=== PATIENT | female | born 2000 | race Caucasian/White ===

== ENCOUNTER 2024-07-08 15:17 | Inpatient (IN) | payer OTHER ==
[2024-07-08] MEDS ORDERED: Ketorolac Tromethamine 30 MG (1 mL) VIAL IVP PRN (18:14)
[2024-07-08] MEDS: Sodium Chloride 0.9% 1,000 ML IV SCH (18:41)
[2024-07-08] MEDS: Cefepime 2 GM in Sodium Chloride 0.9% 100 ML IVPB SCH (19:30)
[2024-07-08] MEDS: methylPREDNISolone Sod Succ 40 MG VIAL IVP SCH (20:08)
[2024-07-08] MEDS: Famotidine/PF 20 mg/2ml Vial SLOW IVP SCH (20:08)
[2024-07-08 20:11] LABS: Influenza A by NAA Not Detected (NotDetected); Influenza B by NAA Not Detected (NotDetected); RSV by NAA Not Detected (NotDetected); SARS-CoV-2 NAA Rapid Test Not Detected (NotDetected)
[2024-07-08] MEDS: Acetaminophen 500 MG TAB PO PRN (20:19)
[2024-07-08] MEDS ORDERED: Vancomycin 1 GM in Sodium Chloride 0.9% 250 ML 300 ML IVPB SCH (21:00)
[2024-07-08 21:04] LABS: ALT (SGPT) 51 U/L (8-55); AST (SGOT) 53 U/L (5-34); Alkaline Phosphatase 194 U/L (40-110); Anion Gap 13 mmol/L (10-20); BUN (Urea Nitrogen) 7 mg/dL (7.0-18.7); Bilirubin, Total 0.6 mg/dL (0.2-1.2); Calc. Creatinine Clearance 122 mL/min (70-130); Carbon Dioxide 16 mmol/L (22-29); Chloride 109 mmol/L (98-107); Estimated GFR 124; Globulin 3.3 g/dL (2.4-3.5); Glucose 95 mg/dL (70-105); Potassium 3.7 mmol/L (3.5-5.1); Protein, Total 5.3 g/dL (6.0-8.3); Sodium 134 mmol/L (136-145)
[2024-07-08 21:10] LABS: Strep pneumo Urine Ag NEGATIVE (NEGATIVE)
[2024-07-08] MEDS: Vancomycin (BATCH) 1.25 GM in Premix 1 BAG IVPB SCH (21:11)
[2024-07-08 21:54] LABS: Legionella Urinary Ag Negative (Negative)
[2024-07-08] MEDS ORDERED: Cefepime 2 GM in Sodium Chloride 0.9% 100 ML IVPB SCH (22:00)
[2024-07-08] MEDS: Azithromycin 500 MG in Sodium Chloride 0.9% 250 ML 250 ML IVPB SCH (22:10)
[2024-07-08] MEDS: Albumin 25% 25 GM (100 mL) BOT IVPB SCH (23:35)
[2024-07-09] MEDS: Albumin 25% 25 GM (100 mL) BOT IVPB SCH (06:10)
[2024-07-09 06:29] LABS: Hematocrit 28.4 % (36.0-47.0); Hemoglobin 9.7 g/dL (12.0-16.0); Mean Corpuscular HGB CONC 34.2 g/dL (32.0-36.0); Mean Corpuscular Hemoglobin 29.4 pg (27.0-31.0); Mean Corpuscular Volume 86.1 fL (78.0-98.0); Mean Platelet Volume 9.5 fL (7.4-10.4); Platelet Count 289 10x3/uL (130-400); RBC Distribution Width 12.3 % (11.5-14.5)
[2024-07-09 06:36] VITALS: BMI 26.2
[2024-07-09 06:36] LABS: ALT (SGPT) 42 U/L (8-55); AST (SGOT) 30 U/L (5-34); Albumin 2.5 g/dL (3.5-5.0); Alkaline Phosphatase 178 U/L (40-110); Anion Gap 11 mmol/L (10-20); BUN (Urea Nitrogen) 7 mg/dL (7.0-18.7); Calc. Creatinine Clearance 136 mL/min (70-130); Carbon Dioxide 19 mmol/L (22-29); Chloride 111 mmol/L (98-107); Estimated GFR 129; Globulin 3.1 g/dL (2.4-3.5); Glucose 142 mg/dL (70-105); Potassium 4.2 mmol/L (3.5-5.1); Protein, Total 5.6 g/dL (6.0-8.3); Sodium 137 mmol/L (136-145)
[2024-07-09 06:58] LABS: Bilirubin, Total 0.5 mg/dL (0.2-1.2); Calcium 8.4 mg/dL (7.8-10.44)
[2024-07-09 07:01] LABS: Band 39 % (5-11); Lymphocytes 1 % (21-51); Monocytes 4 % (0-10); Neutrophil 56 % (42-75); Platelet Adequacy Comment Platelets Normal; RBC Morphology Within Normal Limits
[2024-07-09] MEDS: Enoxaparin 40 MG (0.4 mL) SYRINGE SC SCH (08:58)
[2024-07-09] MEDS: BuPROPion 100 MG SR.TAB PO SCH (08:58)
[2024-07-09 12:26] LABS: Actual Bicarbonate (HCO3a) 18.9 mEq/L (22-28); Base Excess (BEa) -4.2 mEq/L (-2.0 to +3.0); CO2 Tension 29.1 mmHg (35.0-45.0); Calcium, Ionized (arterial) 1.19 mmol/L (1.12-1.30); Carboxyhemoglobin (COHb) 0.1 gm% (0.0-3.0); Hematocrit-ABG 37 % (36.0-47.0); Hemoglobin (Hb) 12.7 g/dL (12.0-16.0); Potassium - ABG Lab 3.85 mmol/L (3.70-5.30); pH, Arterial 7.431 (7.35-7.45)
[2024-07-09 14:33] LABS: O2 Tension (PaO2), arterial 58.6 mmHg (80.0-100.0); Puncture Site Right Radial artery
[2024-07-09] MEDS: Lorazepam 2 MG/ML VIAL ONE (16:57)
[2024-07-09] MEDS: methylPREDNISolone Sod Succ 40 MG VIAL IVP SCH (17:15)
[2024-07-09] MEDS: Vancomycin 1 GM in Premix 1 BAG IVPB SCH (17:15)
[2024-07-09] MEDS: Morphine 4 MG/ML VIAL ONE (18:52)
[2024-07-09] MEDS ORDERED: Morphine 2 MG/ML VIAL SLOW IVP PRN (19:04)
[2024-07-09] MEDS: Morphine 2 MG/ML VIAL SLOW IVP SCH ×2 (19:43→21:01)
[2024-07-09] MEDS: guaiFENesin 200 MG TAB PO PRN (21:59)
[2024-07-09] MEDS: Lorazepam 2 MG/ML VIAL SLOW IVP PRN (23:23)
[2024-07-10 01:00] LABS: Actual Bicarbonate (HCO3a) 19.6 mEq/L (22-28); Base Excess (BEa) -4.9 mEq/L (-2.0 to +3.0); CO2 Tension 33.9 mmHg (35.0-45.0); Calcium, Ionized (arterial) 1.18 mmol/L (1.12-1.30); Carboxyhemoglobin (COHb) 0.3 gm% (0.0-3.0); Hematocrit-ABG 30 % (36.0-47.0); Hemoglobin (Hb) 10.2 g/dL (12.0-16.0); Potassium - ABG Lab 3.63 mmol/L (3.70-5.30); pH, Arterial 7.379 (7.35-7.45)
[2024-07-10 01:07] LABS: O2 Tension (PaO2), arterial 43.5 mmHg (80.0-100.0)
[2024-07-10 01:08] LABS: Puncture Site LR
[2024-07-10 01:09] LABS: ALV-art Gradient 627.125 mmHg (0-20)
[2024-07-10] MEDS: Propofol 1,000 MG/100 ML VIAL IV ONE (01:24)
[2024-07-10] MEDS: Fentanyl CADD 100 ML IV SCH (01:41)
[2024-07-10] MEDS ORDERED: DISCONTINUE PREVIOUS NARCOTIC PAIN MEDICATIONS AND BENZODIAZEPINES FS SCH (01:45)
[2024-07-10] MEDS ORDERED: Morphine 2 MG/ML VIAL SLOW IVP PRN (01:45)
[2024-07-10] MEDS ORDERED: Propofol BOLUS 1,000 MG/100 ML VIAL IV PRN (01:45)
[2024-07-10] MEDS ORDERED: Ventilator Sedation Protocol 1 EACH FS SCH (01:45)
[2024-07-10] MEDS ORDERED: Lorazepam 2 MG/ML VIAL SLOW IVP PRN (01:45)
[2024-07-10] MEDS ORDERED: Fentanyl BOLUS 250 ML IVPB PRN (01:45)
[2024-07-10 02:56] LABS: Actual Bicarbonate (HCO3a) 17.9 mEq/L (22-28); Base Excess (BEa) -3.5 mEq/L (-2.0 to +3.0); Calcium, Ionized (arterial) 1.16 mmol/L (1.12-1.30); Carboxyhemoglobin (COHb) 0.3 gm% (0.0-3.0); Hematocrit-ABG 28 % (36.0-47.0); Hemoglobin (Hb) 9.5 g/dL (12.0-16.0); Potassium - ABG Lab 3.71 mmol/L (3.70-5.30); pH, Arterial 7.535 (7.35-7.45)
[2024-07-10 02:58] LABS: Puncture Site RR
[2024-07-10 02:59] LABS: ALV-art Gradient 577.875 mmHg (0-20)
[2024-07-10 05:34] LABS: #Basophils 0.06 10x3/uL (0.0-0.2); #Eosinophils Less than 0.03 10x3/uL (0.0-0.7); %Basophils 0.3 % (0.0-1.0); %Lymphocytes 5.4 % (21.0-51.0); %Monocytes 5.2 % (0.0-10.0); %Neutrophils 85.4 % (42.0-75.0); Hematocrit 26.3 % (36.0-47.0); Mean Corpuscular HGB CONC 34.2 g/dL (32.0-36.0); Mean Corpuscular Hemoglobin 29.7 pg (27.0-31.0); Mean Corpuscular Volume 86.8 fL (78.0-98.0); Platelet Count 252 10x3/uL (130-400); RBC Distribution Width 12.5 % (11.5-14.5); Red Blood Cell (RBC) Count 3.03 mill/uL (4.20-5.40)
[2024-07-10] MEDS: Propofol 1,000 MG/100 ML VIAL IV PRN (05:45)
[2024-07-10 05:55] LABS: ALT (SGPT) 30 U/L (8-55); AST (SGOT) 23 U/L (5-34); Albumin 3.4 g/dL (3.5-5.0); Alkaline Phosphatase 136 U/L (40-110); Anion Gap 12 mmol/L (10-20); BUN (Urea Nitrogen) 10 mg/dL (7.0-18.7); Bilirubin, Total 0.7 mg/dL (0.2-1.2); Calc. Creatinine Clearance 132 mL/min (70-130); Calcium 8.8 mg/dL (7.8-10.44); Carbon Dioxide 20 mmol/L (22-29); Chloride 109 mmol/L (98-107); Estimated GFR 128; Globulin 2.5 g/dL (2.4-3.5); Glucose 196 mg/dL (70-105); Potassium 3.5 mmol/L (3.5-5.1); Protein, Total 5.9 g/dL (6.0-8.3); Sodium 137 mmol/L (136-145)
[2024-07-10] MEDS: FLU (Fluarix Triv) TS24-25(6MOS UP)/PF 45 MCG/0.5 ML Syringe IM ONE (09:43)
[2024-07-11 04:38] LABS: Vancomycin, Random 34.2 ug/mL (See Comment)
[2024-07-11 04:46] LABS: ALT (SGPT) 43 U/L (8-55); AST (SGOT) 52 U/L (5-34); Albumin 3.2 g/dL (3.5-5.0); Alkaline Phosphatase 130 U/L (40-110); Anion Gap 11 mmol/L (10-20); BUN (Urea Nitrogen) 14 mg/dL (7.0-18.7); Bilirubin, Total 0.4 mg/dL (0.2-1.2); Calc. Creatinine Clearance 134 mL/min (70-130); Calcium 8.4 mg/dL (7.8-10.44); Carbon Dioxide 20 mmol/L (22-29); Chloride 108 mmol/L (98-107); Estimated GFR 128; Globulin 2.4 g/dL (2.4-3.5); Glucose 218 mg/dL (70-105); Magnesium 2.3 mg/dL (1.6-2.6); Phosphorus 2.7 mg/dL (2.3-4.7); Potassium 4.1 mmol/L (3.5-5.1); Protein, Total 5.6 g/dL (6.0-8.3); Sodium 135 mmol/L (136-145)
[2024-07-11 04:48] LABS: Hematocrit 27.7 % (36.0-47.0); Mean Corpuscular HGB CONC 32.5 g/dL (32.0-36.0); Mean Corpuscular Hemoglobin 29.8 pg (27.0-31.0); Mean Corpuscular Volume 91.7 fL (78.0-98.0); Mean Platelet Volume 9.9 fL (7.4-10.4); Platelet Count 390 10x3/uL (130-400); RBC Distribution Width 13.1 % (11.5-14.5); Red Blood Cell (RBC) Count 3.02 mill/uL (4.20-5.40)
[2024-07-11 05:58] LABS: Anisocytosis SLIGHT = 6-15 cells HPF (0-5); Band 12 % (5-11); Hypochromia SLIGHT = 6-15 cells HPF (0-5); Lymphocytes 8 % (21-51); Monocytes 8 % (0-10); Neutrophil 73 % (42-75); Nucleated RBC (Manual Ct) 1 % (0); Platelet Adequacy Comment Platelets Normal; Polychromasia SLIGHT = 2-3 cells HPF (0-2); Smudge Cells 2.9 %
[2024-07-11 07:43] LABS: Actual Bicarbonate (HCO3a) 18.2 mEq/L (22-28); Base Excess (BEa) -5.4 mEq/L (-2.0 to +3.0); CO2 Tension 29.5 mmHg (35.0-45.0); Calcium, Ionized (arterial) 1.16 mmol/L (1.12-1.30); Carboxyhemoglobin (COHb) 0.3 gm% (0.0-3.0); Hematocrit-ABG 30 % (36.0-47.0); Hemoglobin (Hb) 10.3 g/dL (12.0-16.0); Potassium - ABG Lab 4.17 mmol/L (3.70-5.30); pH, Arterial 7.409 (7.35-7.45)
[2024-07-11 07:48] LABS: Puncture Site Right Radial artery
[2024-07-11 07:49] LABS: ALV-art Gradient 200.625 mmHg (0-20)
[2024-07-11] MEDS ORDERED: Vancomycin (BATCH) 1.25 GM in Premix 1 BAG IVPB SCH (09:00)
[2024-07-11 10:42] LABS: CO2 Tension 21.7 mmHg (35.0-45.0)
[2024-07-12 05:20] LABS: Hematocrit 27.9 % (36.0-47.0); Hemoglobin 9.1 g/dL (12.0-16.0); Mean Corpuscular HGB CONC 32.6 g/dL (32.0-36.0); Mean Corpuscular Hemoglobin 29.4 pg (27.0-31.0); Mean Corpuscular Volume 90.3 fL (78.0-98.0); Platelet Count 410 10x3/uL (130-400); RBC Distribution Width 12.9 % (11.5-14.5); Red Blood Cell (RBC) Count 3.09 mill/uL (4.20-5.40)
[2024-07-12 05:52] LABS: Band 1 % (5-11); Lymphocytes 5 % (21-51); Metamyelocyte 2 % (0-0); Monocytes 4 % (0-10); Myelocyte 1 % (0-0); Neutrophil 87 % (42-75); Nucleated RBC (Manual Ct) 1 % (0); Platelet Adequacy Comment Platelets Normal; RBC Morphology Within Normal Limits
[2024-07-12 05:54] LABS: Anion Gap 15 mmol/L (10-20); BUN (Urea Nitrogen) 15 mg/dL (7.0-18.7); Calc. Creatinine Clearance 121 mL/min (70-130); Calcium 8.7 mg/dL (7.8-10.44); Carbon Dioxide 21 mmol/L (22-29); Chloride 111 mmol/L (98-107); Estimated GFR 122; Glucose 180 mg/dL (70-105); Potassium 3.7 mmol/L (3.5-5.1); Sodium 143 mmol/L (136-145)
[2024-07-12] MEDS: Polyethylene Glycol 3350 17 GM Packet PO SCH (08:37)
[2024-07-12] MEDS ORDERED: Insulin Lispro 100 UNIT/ML 10 ML VIAL SC PRN (09:15)
[2024-07-12] MEDS: Phenol 177 ML BOT PO PRN (12:53)
[2024-07-12] MEDS: Ipratropium/Albuterol 3 ML NEB NEB SCH (14:27)
[2024-07-12] MEDS: Budesonide 0.5 MG/2 ML NEB INH SCH (18:21)
[2024-07-12] MEDS: Famotidine 20 MG TAB PO SCH (20:25)
[2024-07-13 05:19] LABS: Anion Gap 12 mmol/L (10-20); BUN (Urea Nitrogen) 13 mg/dL (7.0-18.7); Calc. Creatinine Clearance 132 mL/min (70-130); Carbon Dioxide 25 mmol/L (22-29); Chloride 109 mmol/L (98-107); Estimated GFR 128; Glucose 84 mg/dL (70-105); Sodium 143 mmol/L (136-145)
[2024-07-13 05:53] LABS: Hematocrit 30.5 % (36.0-47.0); Hemoglobin 10.1 g/dL (12.0-16.0); Mean Corpuscular HGB CONC 33.1 g/dL (32.0-36.0); Mean Corpuscular Hemoglobin 29.8 pg (27.0-31.0); Mean Platelet Volume 9.5 fL (7.4-10.4); Platelet Count 482 10x3/uL (130-400); RBC Distribution Width 12.5 % (11.5-14.5); Red Blood Cell (RBC) Count 3.39 mill/uL (4.20-5.40)
[2024-07-13] MEDS ORDERED: Iopamidol-370 76% 500 ML MDV (1 ML CHARGE) ONE (07:06)
[2024-07-13 07:30] LABS: Anisocytosis SLIGHT = 6-15 cells HPF (0-5); Band 2 % (5-11); Lymphocytes 11 % (21-51); Macrocytosis SLIGHT = 6-15 cells HPF (0-5); Metamyelocyte 1 % (0-0); Monocytes 4 % (0-10); Myelocyte 5 % (0-0); Neutrophil 77 % (42-75); Platelet Adequacy Comment Platelets Normal; Polychromasia SLIGHT = 2-3 cells HPF (0-2)
[2024-07-13] MEDS: Potassium Chloride 20 MEQ TAB PO SCH (08:40)
[2024-07-13] MEDS: methylPREDNISolone Sod Succ 40 MG VIAL IVP SCH (08:40)
[2024-07-13] MEDS: BuPROPion 100 MG SR.TAB PO SCH (08:40)
[2024-07-13] MEDS: Ondansetron PF 4 MG/2 ML Vial IVP PRN (08:40)
[2024-07-13] MEDS ORDERED: Dextrose 50% Abboject 50 ML SYRINGE SLOW IVP PRN (09:00)
[2024-07-13] MEDS ORDERED: Glucagon 1 MG/ML KIT IM PRN (09:00)
[2024-07-13] MEDS ORDERED: Dextrose 5% in Water 1,000 ML IV PRN (09:00)
[2024-07-13 13:04] LABS: INR-International Normal Ratio 1.1
[2024-07-13] MEDS ORDERED: Sodium Bicarbonate 2.5 MEQ/5 ML SDV ONE (15:00)
[2024-07-13] MEDS ORDERED: Lidocaine 1% w/Epinephrine 1:100K 20 ML VIAL ONE (15:00)
[2024-07-13 17:45] LABS: Fluid, Glucose 96 mg/dL (Not Available); Fluid, LDH 537 U/L (Not Available)
[2024-07-13 18:06] LABS: Body Fluid Source Ascites Body Fluid; Clarity Hazy (Clear); RBC Count-Automated (BF) 3170 /cu.mm; Tube # EDTA; WBC/Nucleated-Auto (BF) 7045 /cu.mm
[2024-07-13 18:07] LABS: BF Color Yellow
[2024-07-13 18:10] LABS: BF Segmented Neutrophils 52 %; Cell Count Non Hematic 14 %; Lymphocytes 34 %
[2024-07-13] MEDS: Cefepime 2 GM in Sodium Chloride 0.9% 100 ML IVPB SCH (21:58)
[2024-07-14 05:03] LABS: Hematocrit 31.1 % (36.0-47.0); Hemoglobin 10.2 g/dL (12.0-16.0); Mean Corpuscular HGB CONC 32.8 g/dL (32.0-36.0); Mean Corpuscular Hemoglobin 29.3 pg (27.0-31.0); Mean Corpuscular Volume 89.4 fL (78.0-98.0); Mean Platelet Volume 9.4 fL (7.4-10.4); Platelet Count 423 10x3/uL (130-400); RBC Distribution Width 12.2 % (11.5-14.5); Red Blood Cell (RBC) Count 3.48 mill/uL (4.20-5.40)
[2024-07-14 05:07] LABS: Anion Gap 13 mmol/L (10-20); BUN (Urea Nitrogen) 15 mg/dL (7.0-18.7); Calc. Creatinine Clearance 136 mL/min (70-130); Calcium 8.8 mg/dL (7.8-10.44); Carbon Dioxide 26 mmol/L (22-29); Chloride 106 mmol/L (98-107); Estimated GFR 129; Glucose 93 mg/dL (70-105); Potassium 3.4 mmol/L (3.5-5.1); Sodium 142 mmol/L (136-145)
[2024-07-14 05:39] LABS: Band 3 % (5-11); Lymphocytes 10 % (21-51); Metamyelocyte 4 % (0-0); Monocytes 3 % (0-10); Myelocyte 1 % (0-0); Neutrophil 80 % (42-75); Platelet Adequacy Comment Platelets Normal; Polychromasia SLIGHT = 2-3 cells HPF (0-2); RBC Morphology Within Normal Limits; Smudge Cells 2.6 %
[2024-07-14] MEDS ORDERED: Electrolyte Replacement Protocol FS PRN (07:15)
[2024-07-14] MEDS: Potassium Chloride 20 MEQ TAB PO SCH ×2 (08:12→08:52)
[2024-07-14] MEDS ORDERED: Potassium Chloride 20 MEQ TAB PO SCH (08:15)
[2024-07-14] MEDS: Potassium Chloride 20 MEQ in Premix 1 BAG IVPB SCH (10:01)
[2024-07-14] MEDS: Albumin 25% 25 GM (100 mL) BOT IVPB SCH (11:10)
[2024-07-14] MEDS: cefTRIAXone\\ROCEPHIN 2 GM in Sodium Chloride 0.9% 100 ML IVPB SCH (11:57)
[2024-07-14 14:04] VITALS: BMI 23.6
[2024-07-14] MEDS: metroNIDAZOLE 500 MG in Premix 1 BAG IVPB SCH ×2 (16:31→20:55)
[2024-07-14] MEDS: Ondansetron ODT 4 MG TAB PO PRN (20:55)
[2024-07-14] MEDS: Ketorolac Tromethamine 30 MG (1 mL) VIAL IVP SCH (22:39)
[2024-07-15] MEDS: HYDROcodone/Acetaminophen 5/325 mg Tablet PO SCH
[2024-07-15 03:51] LABS: #Basophils 0.03 10x3/uL (0.0-0.2); %Basophils 0.1 % (0.0-1.0); %Eosinophils 0.9 % (0.0-10.0); %Lymphocytes 7.8 % (21.0-51.0); %Neutrophils 80.2 % (42.0-75.0); Hematocrit 28.8 % (36.0-47.0); Hemoglobin 9.5 g/dL (12.0-16.0); Mean Corpuscular Hemoglobin 29.5 pg (27.0-31.0); Mean Corpuscular Volume 89.4 fL (78.0-98.0); Mean Platelet Volume 9.3 fL (7.4-10.4); Platelet Count 425 10x3/uL (130-400); RBC Distribution Width 12.3 % (11.5-14.5); Red Blood Cell (RBC) Count 3.22 mill/uL (4.20-5.40)
[2024-07-15 04:11] LABS: Anion Gap 12 mmol/L (10-20); BUN (Urea Nitrogen) 10 mg/dL (7.0-18.7); Calc. Creatinine Clearance 117 mL/min (70-130); Calcium 9.1 mg/dL (7.8-10.44); Carbon Dioxide 23 mmol/L (22-29); Chloride 107 mmol/L (98-107); Estimated GFR 128; Glucose 97 mg/dL (70-105); Potassium 3.8 mmol/L (3.5-5.1); Sodium 138 mmol/L (136-145)
[2024-07-15] MEDS: oxyCODONE 5 MG TAB PO PRN (14:54)
[2024-07-16 04:51] LABS: #Basophils 0.06 10x3/uL (0.0-0.2); %Basophils 0.3 % (0.0-1.0); %Eosinophils 1.3 % (0.0-10.0); %Lymphocytes 8.8 % (21.0-51.0); %Monocytes 8.9 % (0.0-10.0); %Neutrophils 79.2 % (42.0-75.0); Hematocrit 32.6 % (36.0-47.0); Hemoglobin 10.8 g/dL (12.0-16.0); Mean Corpuscular HGB CONC 33.1 g/dL (32.0-36.0); Mean Corpuscular Hemoglobin 29.4 pg (27.0-31.0); Mean Corpuscular Volume 88.8 fL (78.0-98.0); Platelet Count 394 10x3/uL (130-400); RBC Distribution Width 12.6 % (11.5-14.5); Red Blood Cell (RBC) Count 3.67 mill/uL (4.20-5.40)
[2024-07-16 04:56] LABS: Anion Gap 14 mmol/L (10-20); BUN (Urea Nitrogen) 10 mg/dL (7.0-18.7); Calc. Creatinine Clearance 119 mL/min (70-130); Calcium 9.4 mg/dL (7.8-10.44); Carbon Dioxide 21 mmol/L (22-29); Chloride 107 mmol/L (98-107); Estimated GFR 128; Glucose 97 mg/dL (70-105); Lipase 56 U/L (8-78); Potassium 3.9 mmol/L (3.5-5.1); Sodium 138 mmol/L (136-145)
[2024-07-16 05:00] LABS: ALT (SGPT) 30 U/L (8-55); AST (SGOT) 14 U/L (5-34); Alkaline Phosphatase 106 U/L (40-110); Bilirubin, Direct 0.3 mg/dL (0.1-0.3); Bilirubin, Total 0.7 mg/dL (0.2-1.2); Protein, Total 6.6 g/dL (6.0-8.3)
[2024-07-16] MEDS ORDERED: Iopamidol-370 76% 500 ML MDV (1 ML CHARGE) ONE (11:22)
[2024-07-16] MEDS ORDERED: Naproxen 500 MG TAB PO PRN (16:31)
[2024-07-16] MEDS: Cefepime 1 GM in Sodium Chloride 0.9% 100 ML IVPB SCH (21:32)
[2024-07-16] MEDS: Simethicone Chewable 80 MG TAB PO SCH (22:17)
[2024-07-17 04:58] LABS: #Basophils 0.04 10x3/uL (0.0-0.2); %Basophils 0.3 % (0.0-1.0); %Eosinophils 1.9 % (0.0-10.0); %Lymphocytes 8.1 % (21.0-51.0); %Monocytes 11.7 % (0.0-10.0); %Neutrophils 76.3 % (42.0-75.0); Hemoglobin 10.3 g/dL (12.0-16.0); Mean Corpuscular HGB CONC 33.2 g/dL (32.0-36.0); Mean Corpuscular Hemoglobin 28.7 pg (27.0-31.0); Mean Corpuscular Volume 86.4 fL (78.0-98.0); Mean Platelet Volume 9.3 fL (7.4-10.4); Platelet Count 501 10x3/uL (130-400); RBC Distribution Width 12.5 % (11.5-14.5); Red Blood Cell (RBC) Count 3.59 mill/uL (4.20-5.40)
[2024-07-17 05:11] LABS: Anion Gap 14 mmol/L (10-20); BUN (Urea Nitrogen) 10 mg/dL (7.0-18.7); Calc. Creatinine Clearance 122 mL/min (70-130); Calcium 9.4 mg/dL (7.8-10.44); Carbon Dioxide 22 mmol/L (22-29); Chloride 106 mmol/L (98-107); Estimated GFR 129; Glucose 93 mg/dL (70-105); Lipase 58 U/L (8-78); Potassium 3.9 mmol/L (3.5-5.1); Sodium 138 mmol/L (136-145)
[2024-07-17 05:19] LABS: ALT (SGPT) 33 U/L (8-55); AST (SGOT) 27 U/L (5-34); Albumin 3.7 g/dL (3.5-5.0); Alkaline Phosphatase 112 U/L (40-110); Bilirubin, Direct 0.3 mg/dL (0.1-0.3); Bilirubin, Total 0.6 mg/dL (0.2-1.2); Protein, Total 6.2 g/dL (6.0-8.3)
[2024-07-17] MEDS: Lactated Ringer's 1,000 ML IV SCH (11:38)
[2024-07-17] MEDS: Cefepime 2 GM in Sodium Chloride 0.9% 100 ML IVPB SCH (20:10)
[2024-07-17] MEDS: Simethicone Chewable 80 MG TAB PO PRN (20:44)
[2024-07-18 04:26] LABS: #Basophils 0.03 10x3/uL (0.0-0.2); %Basophils 0.3 % (0.0-1.0); %Eosinophils 3.2 % (0.0-10.0); %Lymphocytes 14.2 % (21.0-51.0); %Monocytes 15.2 % (0.0-10.0); %Neutrophils 65.5 % (42.0-75.0); Hematocrit 31.1 % (36.0-47.0); Hemoglobin 10.3 g/dL (12.0-16.0); Mean Corpuscular HGB CONC 33.1 g/dL (32.0-36.0); Mean Corpuscular Hemoglobin 29.1 pg (27.0-31.0); Mean Corpuscular Volume 87.9 fL (78.0-98.0); Mean Platelet Volume 9.3 fL (7.4-10.4); Platelet Count 505 10x3/uL (130-400); RBC Distribution Width 12.5 % (11.5-14.5); Red Blood Cell (RBC) Count 3.54 mill/uL (4.20-5.40)
[2024-07-18 04:45] LABS: Anion Gap 12 mmol/L (10-20); BUN (Urea Nitrogen) 9 mg/dL (7.0-18.7); Calc. Creatinine Clearance 122 mL/min (70-130); Calcium 9.3 mg/dL (7.8-10.44); Carbon Dioxide 23 mmol/L (22-29); Chloride 108 mmol/L (98-107); Estimated GFR 129; Glucose 94 mg/dL (70-105); Potassium 4.1 mmol/L (3.5-5.1); Sodium 139 mmol/L (136-145)
[2024-07-18 09:17] VITALS: BP 106/74; TEMP 99.6
== END 2024-07-18 11:53 | disposition home or self-care (01) | DRG 871 ==
LOC: IMCU/EMU 16:22 → CCU 07-09 23:09 → 2SW 07-14 17:19 → OBS 07-18 09:36
PROVIDERS: ADMIT Internal Medicine; ATTEND Hospitalist
PROC: 5A09357 Assistance with Respiratory Ventilation, Less than 24 Consecutive Hours, Continuous Positive Airway Pressure (ICD-10-PCS; 2024-07-08)
PROC: 5A0935A Assistance with Respiratory Ventilation, Less than 24 Consecutive Hours, High Flow/Velocity Cannula (ICD-10-PCS; 2024-07-08)
PROC: 3E03329 Introduction of Other Anti-infective into Peripheral Vein, Percutaneous Approach (ICD-10-PCS; 2024-07-08)
PROC: 4A133R1 Monitoring of Arterial Saturation, Peripheral, Percutaneous Approach (ICD-10-PCS; 2024-07-09)
PROC: 0BH17EZ Insertion of Endotracheal Airway into Trachea, Via Natural or Artificial Opening (ICD-10-PCS; principal; 2024-07-10)
PROC: 0B9J8ZX Drainage of Left Lower Lung Lobe, Via Natural or Artificial Opening Endoscopic, Diagnostic (ICD-10-PCS; 2024-07-10)
PROC: 5A1945Z Respiratory Ventilation, 24-96 Consecutive Hours (ICD-10-PCS; 2024-07-10)
PROC: 0W9G3ZZ Drainage of Peritoneal Cavity, Percutaneous Approach (ICD-10-PCS; 2024-07-13)
DX: A41.9 Sepsis, unspecified organism (principal); J18.9 Pneumonia, unspecified organism; J80 Acute respiratory distress syndrome; K65.2 Spontaneous bacterial peritonitis; D62 Acute posthemorrhagic anemia; R65.20 Severe sepsis without septic shock; Z90.49 Acquired absence of other specified parts of digestive tract; Z86.16 Personal history of COVID-19; E88.09 Other disorders of plasma-protein metabolism, not elsewhere classified
CPT/HCPCS: 0241U; 36415; 36600; 49083; 71045; 71250; 71260; 74177; 76705; 80048; 80053; 80076; 80202; 82042; 82805; 82945; 83605; 83615; 83690; 83735; 84100; 84145; 84157; 85025; 85060; 85610; 85730; 87070; 87081; 87102; 87116; 87205; 87206; 87324; 87449; 87899; 88112; 89051; 93005; 93010; 94002; 94003; 94640; 94660; J0456; J0692; J0696; J1650; J1885; J2060; J2272; J2405; J2704; J2919; J3010; J3370; J3370-JW; J3480; J3490; J7030; J7050; J7120; J7620; J7626; P9047; Q0162; Q9967

== ENCOUNTER 2024-08-07 03:30 | Emergency (ER) | payer OTHER ==
[2024-08-07] MEDS ORDERED: Lorazepam 2 MG/ML VIAL ONE (03:56)
[2024-08-07 04:14] LABS: #Basophils 0.04 10x3/uL (0.0-0.2); %Basophils 0.4 % (0.0-1.0); %Eosinophils 1.2 % (0.0-10.0); %Lymphocytes 50.8 % (21.0-51.0); %Monocytes 8.7 % (0.0-10.0); %Neutrophils 38.7 % (42.0-75.0); Hematocrit 33.2 % (36.0-47.0); Hemoglobin 11.3 g/dL (12.0-16.0); Mean Corpuscular Hemoglobin 29.9 pg (27.0-31.0); Mean Corpuscular Volume 87.8 fL (78.0-98.0); Mean Platelet Volume 9.8 fL (7.4-10.4); Platelet Count 311 10x3/uL (130-400); RBC Distribution Width 13.5 % (11.5-14.5); Red Blood Cell (RBC) Count 3.78 mill/uL (4.20-5.40)
[2024-08-07 04:53] LABS: ALT (SGPT) 15 U/L (8-55); AST (SGOT) 16 U/L (5-34); Albumin 4.1 g/dL (3.5-5.0); Alkaline Phosphatase 74 U/L (40-110); Anion Gap 19 mmol/L (10-20); BUN (Urea Nitrogen) 7 mg/dL (7.0-18.7); Bilirubin, Total 0.4 mg/dL (0.2-1.2); Calc. Creatinine Clearance 0 mL/min (70-130); Calcium 9.3 mg/dL (7.8-10.44); Carbon Dioxide 15 mmol/L (22-29); Chloride 108 mmol/L (98-107); Estimated GFR 115; Globulin 3.1 g/dL (2.4-3.5); Glucose 110 mg/dL (70-105); Potassium 2.8 mmol/L (3.5-5.1); Protein, Total 7.2 g/dL (6.0-8.3); Sodium 139 mmol/L (136-145)
== END 2024-08-07 05:11 | disposition home or self-care (01) ==
LOC: ERS 03:30
DX: F41.9 Anxiety disorder, unspecified (principal); R06.02 Shortness of breath
CPT/HCPCS: 71045; 80053; 85025; 93005; 96374; J2060